=== PATIENT | male | born 1960 | race Caucasian/White ===

== ENCOUNTER 2019-01-12 05:45 | Day surgery (SDC) | payer BC ==
--- NOTE | 2019-01-06 18:28 | HP ---
CC: Dr. Chris Cid * ADMITTING HISTORY AND PHYSICAL: DATE OF ADMISSION: 01/12/19 ADMITTING DIAGNOSIS: Bladder lesion. PLANNED PROCEDURE: Cystoscopy, excision biopsy of bladder lesion, and left stent insertion. SURGEON: Dr. Pradhan. 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 Recent cystoscopy has revealed an approximately 1.5 cm area about the left orifice with an appearance consistent with low-grade superficial bladder neoplasm. He was given the option of waiting and repeating a cystoscopy in 6 to 12 months versus an excision biopsy and he has opted for now being brought in for the excision biopsy. Because of the location of this lesion overlying the intramural portion of the left ureter, he will require temporary left stent insertion. PAST MEDICAL HISTORY: Significant for recurrent renal calculi. MEDICATIONS ON ADMISSION: None. ALLERGIES: No known drug allergies. REVIEW OF SYSTEMS: He is otherwise in excellent health. There is no history of diabetes mellitus or any other major systemic illness. PHYSICAL EXAMINATION GENERAL: Reveals a pleasant, healthy-appearing gentleman. VITAL SIGNS: Blood pressure is 120/68; pulse 82 per minute, regular; oxygen saturation 99% on room air. LUNGS: Clear bilaterally. CARDIOVASCULAR: Regular rate and rhythm. S1, S2. ABDOMEN: Soft without masses. IMPRESSION: A 58-year-old gentleman with the above-described bladder lesion. PLAN/RECOMMENDATIONS: Planned procedure is cystoscopy, excision biopsy of bladder lesion, and temporary left stent insertion. [id number]/[facility] #: [id number] [facility]
[~2019-01-12 05:45] MED LIST: Buffered Lidocaine 1% SYRIN* 1 ML/SYRINGE INTRADERM ONE
[2019-01-12] MEDS ORDERED: Famotidine IV* 10 MG/ML 2 ML (20 mg) IV ONE (06:00)
[2019-01-12] MEDS ORDERED: Lactated Ringers 1000 ML Bag* 1,000 ML IV SCH (06:00)
[2019-01-12] MEDS ORDERED: Dexamethasone IV* 4 MG/ML 1 ML (4 MG) IV SLOW PU ONE (06:00)
[2019-01-12] MEDS ORDERED: cefTRIAXone(*) 2 GM ADDV.VIAL IVPB ONE (06:01)
[2019-01-12] MEDS ORDERED: Dexamethasone IV* 4 MG/ML 1 ML (4 MG) ONE (06:01)
[2019-01-12] MEDS ORDERED: Famotidine IV* 10 MG/ML 2 ML (20 mg) ONE (06:01)
[2019-01-12] MEDS ORDERED: fentaNYL* 50 MCG/ML 2 ML VIAL (100 MCG VIAL) ONE (07:10)
[2019-01-12] MEDS ORDERED: Iohexol 180 (CONTRAST) 10 ML SDV IV ONE (07:10)
[2019-01-12] MEDS ORDERED: Ketorolac INJ* 30 MG/ML 1 ML VIAL ONE (07:11)
[2019-01-12] MEDS ORDERED: Ondansetron INJ* 2 MG/ML VIAL ONE (07:11)
[2019-01-12] MEDS ORDERED: fentaNYL* 50 MCG/ML 2 ML VIAL (100 MCG VIAL) IV PRN (07:21)
[2019-01-12] MEDS ORDERED: Naloxone* 0.4 MG/ML 1 ML VIAL IV PRN (07:21)
[2019-01-12] MEDS ORDERED: DiMENhydriNATE IV* 50 MG/ML VIAL IV PUSH PRN (07:21)
[2019-01-12] MEDS ORDERED: Lidocaine 2% PF * 5 ML VIAL ONE (07:43)
[2019-01-12] MEDS ORDERED: Furosemide IV* 10 MG/ML 2 ML VIAL (20 MG) ONE (07:43)
[2019-01-12] MEDS ORDERED: Tamsulosin CAP* 0.4 MG ONE (08:56)
[2019-01-12] MEDS ORDERED: Lidocaine 2% JELLY* 6 ML JELLY TOPICAL ONE (08:56)
--- NOTE | 2019-01-12 09:58 | OP ---
CC: Chris Cid MD; Karel Pradhan MD OPERATIVE REPORT: DATE OF OPERATION: 01/12/19 DATE OF : 64 SURGEON: Karel Pradhan MD. ANESTHESIOLOGIST: Dr. Newton. ANESTHESIA: General. PRE-OP DIAGNOSIS: Bladder lesion. POST-OP DIAGNOSIS: Bladder lesion. OPERATIVE PROCEDURE: 1. Cystoscopy. 2. Excision biopsies and fulguration of bladder lesion (approximately 2 cm). 3. Left retrograde and left stent insertion. COMPLICATIONS: None. ESTIMATED BLOOD LOSS: Minimal. STENT USED: A 6-Bermudian stent left ureter. OPERATIVE FINDINGS: 1. Mild to moderately enlarged prostate. 2. Approximately 2 cm area adjacent to left orifice with raised, slightly irregular mucosa (low grad e superficial transitional cell neoplasm versus chronic inflammatory changes). POSTOPERATIVE CONDITION: Stable. 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 DESCRIPTION OF PROCEDURE: After induction of general anesthesia, the patient was placed in dorsal li thotomy position. Sequential compression devices were in place and functioning. Initial cystoscopy revealed a normal appearing urethra, a mild to moderately enlarged prostate; predominantly median lob e and a normally located right and left ureteral orifices. Just above and lateral to the left orific e was an area of raised irregular bladder mucosa. A guidewire was introduced into the left ureteral orifice. Retrograde pyelogram did not reveal any p ersistent filling defects or obstruction. The wire was left in place during the excision biopsies an d fulguration till the stent placement at the end of the procedure. Next, using biopsy forceps, excision biopsies were carried out and the area was completely removed an d sent for histopathology. Next, using the Bugbee electrocautery, the base and edges were carefully fulgurated. At the end of the procedure, there was no remaining abnormal lesion and hemostasis appea red satisfactory. A 6-Bermudian stent was introduced under fluoroscopy and was positioned under fluoroscopy with good prox imal and distal positioning obtained. A 20-Bermudian Teresa was placed for temporary bladder drainage. The patient tolerated the procedure satisfactorily and was transferred back to the recovery area in s table condition. [id number]/[facility] #: [id number]
[2019-01-12 11:01] VITALS: BP 116/65
== END 2019-01-12 11:04 | disposition home or self-care (01) ==
LOC: OR 05:45
PROVIDERS: ATTEND Urology
DX: N32.9 Bladder disorder, unspecified (principal); Z87.442 Personal history of urinary calculi; N40.0 Benign prostatic hyperplasia without lower urinary tract symptoms
CPT/HCPCS: 74420; 88305; C1876; J0696; J1100; J1885; J1940; J2405; J3010